=== PATIENT | female | born 1935 | race African-American/Black ===

== ENCOUNTER 2018-02-18 13:52 | Outpatient (CLI) | payer MEDICARE | END 2018-02-18 13:53 | disposition home or self-care (01) | LOC: BICULT 13:52 | PROVIDERS: ATTEND Otolaryngology Plastic Surgery within the Head & Neck | DX: E04.1 Nontoxic single thyroid nodule (principal); E04.2 Nontoxic multinodular goiter; Z90.89 Acquired absence of other organs | CPT/HCPCS: 76536 ==

== ENCOUNTER 2019-02-07 00:16 | Outpatient (CLI) | payer MEDICARE, MEDICAID ==
[2019-02-07 13:59] LABS: #Eosinphils 0.2 thou/uL (0.0-0.7); #Lymphocytes 1.6 thou/uL (1.20-3.40); #Monocytes 0.5 thou/uL (0.11-0.59); #Neutrophils 1.6 thou/uL (1.40-6.50); %Basophils 0.8 % (0.0-1.0); %Eosinophils 6.1 % (0.0-10.0); %Lymphocytes 39.6 % (21.0-51.0); %Monocytes 11.7 % (0.0-10.0); %Neutrophils 41.8 % (42.0-75.0); Hemoglobin 12.6 g/dL (12.0-16.0); Mean Corpuscular Hemoglobin 31.1 pg (27.0-31.0); Mean Corpuscular Volume 97.2 fL (78.0-98.0); Mean Platelet Volume 8.8 fL (7.4-10.4); Platelet Count 186 thou/uL (130-400); RBC Distribution Width 12.5 % (11.5-14.5); Red Blood Cell (RBC) Count 4.07 mill/uL (4.20-5.40); White Blood Cell (WBC) Count 3.9 thou/uL (4.8-10.8)
[2019-02-07 14:27] LABS: Anion Gap 13 mmol/L (10-20); BUN (Urea Nitrogen) 16 mg/dL (9.8-20.1); Calc. Creatinine Clearance 0 mL/min (70-130); Calcium 9.6 mg/dL (7.8-10.44); Carbon Dioxide 28 mmol/L (23-31); Chloride 105 mmol/L (98-107); Estimated GFR-MDRD 74; Glucose 85 mg/dL (83-110); Potassium 3.8 mmol/L (3.5-5.1); Sodium 142 mmol/L (136-145)
== END 2019-02-07 00:17 | disposition home or self-care (01) ==
LOC: LABBT 00:16
PROVIDERS: ATTEND Orthopaedic Surgery
DX: Z01.818 Encounter for other preprocedural examination (principal); G56.02 Carpal tunnel syndrome, left upper limb
CPT/HCPCS: 80048; 85025; 93005; 93010

== ENCOUNTER 2019-02-28 06:49 | Day surgery (SDC) | payer MEDICARE, MEDICAID ==
[2019-02-25 10:53] VITALS: BMI 19.8
[2019-02-28] MEDS ORDERED: Clindamycin/D5W 900 mg/50 ml Premix Bag ONE (09:07)
[2019-02-28] MEDS ORDERED: Lidocaine 1% (PF) 30 ML VIAL ONE (09:40)
[2019-02-28] MEDS ORDERED: Bupivacaine PF 0.5% 30 ML VIAL ONE (09:41)
[2019-02-28] MEDS ORDERED: Lidocaine 1% PF 5 ML VIAL ONE (12:12)
[2019-02-28] MEDS ORDERED: PROPOFOL 200 MG/20 ML VIAL ONE (12:12)
--- NOTE | 2019-02-28 18:43 | OP ---
DATE OF PROCEDURE: 02/28/2019 ANESTHESIA: Local plus TIVA. PREOPERATIVE DIAGNOSIS: Left carpal tunnel syndrome. POSTOPERATIVE DIAGNOSIS: Left carpal tunnel syndrome. PROCEDURE PERFORMED: Left endoscopic carpal tunnel release. DESCRIPTION OF PROCEDURE: After satisfactory anesthesia was induced in a position, the patient was prepped and draped in routine manner. A field block with 1% lidocaine 10 mL was performed. The left arm was elevated, exsanguinated with an Esmarch bandage, and the tourniquet was inflated to 250 mmHg. A 2 cm transverse incision was made in the proximal wrist flexion crease and carried down through the subcutaneous tissues. Bleeding points were controlled with cautery. Using sharp and blunt dissection, a distally based flap at the deep forearm fascia was developed and was retracted distally. Palmaris longus tendon was retracted radially. Proximal edge of the deep forearm fascia was split under direct visualization with small scissors to make sure there was no proximal impingement median nerve. The carpal tunnel based synovium was elevated, but it was introduced beneath the transverse carpal ligament. The synovium cleaned from the under surface. Carpal tunnel dilators were inserted. A Qnarye endoscopic carpal tunnel system was introduced beneath the transverse carpal ligament in-line with the ring finger. The distal edge of the ligament was easily identified and then divided in a distal to proximal direction by pulling the trigger of the assembly, engaging the knife, and withdrawing the scope proximally. This was done in several stages to make sure there was complete division of the transverse carpal ligament, which was documented with the video printer. After withdrawing the scope, a carpal tunnel dilator could be inserted into the carpal tunnel and there was markedly improved passage and subcutaneous position of the instrument. The scope was reintroduced in the carpal tunnel. There was wide separation of the 2 leaves of the transverse carpal ligament. The tourniquet was released after 6 minutes. Of note, there was no excessive bleeding when the scope was withdrawn. The wound was thoroughly irrigated and then closed with running subcuticular 3-0 nylon. Sterile dressing was applied. The patient immobilized in a Velcro wrist splint. She was awakened and taken out from the operating room in stable condition. There were no apparent intraoperative complications. The estimated blood loss was negligible. The patient will be discharged home in satisfactory condition, started on ice and elevation, and given written wound care instructions. She was given a prescription for tramadol for pain, 20 tabs with one refill. She will be rechecked in my office in 10 to 14 days or sooner if any problems prior to that time. Job ID: [id number]
--- NOTE | 2019-03-01 10:03 | HP ---
HISTORY OF PRESENT ILLNESS: The patient is an 83-year-old female with a 1-year history of pain and tingling in both hands, left symptomatic more than right. She has had pain and tingling in median nerve distribution, which has persisted despite rest, restriction of activities, and splinting. Her symptoms are worse at night. PAST MEDICAL HISTORY: The patient has history of hypertension, thyroid disease, and high cholesterol. CURRENT MEDICATIONS: Include; 1. Donepezil. 2. Lipitor. 3. Megace. 4. Zyrtec. 5. Multivitamins. 6. Amlodipine. 7. Low-dose aspirin. 8. Clonidine. 9. Hydrochlorothiazide. 10. Irbesartan. 11. Levothyroxine. 12. Omeprazole. ALLERGIES: SHE IS ALLERGIC TO PENICILLIN. FAMILY HISTORY: Otherwise, unremarkable. SOCIAL HISTORY: Otherwise, unremarkable. REVIEW OF SYSTEMS: Otherwise, unremarkable. PHYSICAL EXAMINATION: GENERAL: Reveals a healthy elderly female. HEENT: Unremarkable. NECK: Supple. CHEST: Clear. HEART: Regular rate and rhythm. ABDOMEN: Soft and nontender. PELVIC, RECTAL, AND BREASTS: Deferred. EXTREMITIES: Pertinent findings related to her hands and wrists. There is slight thenar atrophy bilaterally. There is full range of motion. There is some questionable weakness of thumb abduction bilaterally. There is a positive Tinel's sign and positive Phalen's test bilaterally, left slightly greater than right. There is subjective numbness in median nerve distribution bilaterally. There is good capillary refill. DIAGNOSTIC STUDIES: Electrodiagnostic studies reveal bilateral carpal tunnel syndrome, left greater than right. PLAN: Endoscopic possible open left carpal tunnel release. She will eventually require staged right carpal tunnel release. The nature of the surgery, length of recovery, and potential complications such as infection, loss of motion, incomplete relief, nerve injury, recurrence, need for additional treatment, and repeat surgery have been discussed in detail with the patient and her son. Job ID: [id number]
== END 2019-02-28 11:54 | disposition home or self-care (01) ==
LOC: EEVIPCON 06:49 → SDC 06:49
PROVIDERS: ATTEND Orthopaedic Surgery
PROC: 01N54ZZ Release Median Nerve, Percutaneous Endoscopic Approach (ICD-10-PCS; principal; 2019-02-28)
DX: G56.03 Carpal tunnel syndrome, bilateral upper limbs (principal); K21.9 Gastro-esophageal reflux disease without esophagitis; M19.90 Unspecified osteoarthritis, unspecified site; F41.9 Anxiety disorder, unspecified; I10 Essential (primary) hypertension; E03.9 Hypothyroidism, unspecified; E78.5 Hyperlipidemia, unspecified; E78.00 Pure hypercholesterolemia, unspecified; Z79.82 Long term (current) use of aspirin; Z79.899 Other long term (current) drug therapy; Z88.0 Allergy status to penicillin
CPT/HCPCS: J2001; J3490; S0020

== ENCOUNTER 2019-06-01 08:33 | Outpatient (CLI) | payer MEDICARE, MEDICAID ==
[2019-06-01 09:31] LABS: #Eosinphils 0.2 thou/uL (0.0-0.7); #Lymphocytes 1.1 thou/uL (1.20-3.40); #Monocytes 0.4 thou/uL (0.11-0.59); #Neutrophils 1.4 thou/uL (1.40-6.50); %Basophils 1.5 % (0.0-1.0); %Eosinophils 5.1 % (0.0-10.0); %Lymphocytes 35.7 % (21.0-51.0); %Monocytes 11.3 % (0.0-10.0); %Neutrophils 46.4 % (42.0-75.0); Hemoglobin 12.2 g/dL (12.0-16.0); Mean Corpuscular HGB CONC 32.4 g/dL (32.0-36.0); Mean Corpuscular Hemoglobin 31.3 pg (27.0-31.0); Mean Corpuscular Volume 96.8 fL (78.0-98.0); Mean Platelet Volume 8.5 fL (7.4-10.4); Platelet Count 181 thou/uL (130-400); RBC Distribution Width 12.4 % (11.5-14.5); Red Blood Cell (RBC) Count 3.88 mill/uL (4.20-5.40); White Blood Cell (WBC) Count 3.1 thou/uL (4.8-10.8)
[2019-06-01 09:50] LABS: Anion Gap 12 mmol/L (10-20); BUN (Urea Nitrogen) 16 mg/dL (9.8-20.1); Calc. Creatinine Clearance 0 mL/min (70-130); Calcium 9.6 mg/dL (7.8-10.44); Carbon Dioxide 27 mmol/L (23-31); Chloride 108 mmol/L (98-107); Estimated GFR-MDRD 79; Glucose 91 mg/dL (83-110); Sodium 143 mmol/L (136-145)
== END 2019-06-01 08:34 | disposition home or self-care (01) ==
LOC: LABBT 08:33
PROVIDERS: ATTEND Orthopaedic Surgery
DX: Z01.818 Encounter for other preprocedural examination (principal); G56.01 Carpal tunnel syndrome, right upper limb
CPT/HCPCS: 80048; 85025; 93005; 93010

== ENCOUNTER 2019-06-15 05:36 | Day surgery (SDC) | payer MEDICARE, MEDICAID ==
[2019-05-31 14:34] VITALS: BMI 21.1
--- NOTE | 2019-06-14 09:33 | HP ---
HISTORY OF PRESENT ILLNESS: The patient is an 84-year-old female with a long history of pain and numbness in both hands without injury. She has had persistent symptoms despite rest, restriction of activities, splinting, and anti-inflammatory medications. She underwent a left carpal tunnel release in February of this year with gradual improvement. She continues to have symptoms on the right side and is admitted at this time for right carpal tunnel release. PAST MEDICAL HISTORY: The patient has history of high cholesterol, high blood pressure, and thyroid disease. CURRENT MEDICATIONS: Include, 1. Lipitor. 2. Megace. 3. Zyrtec. 4. Multivitamins. 5. 81 mg aspirin. 6. Buspirone. 7. Clonidine. 8. Hydrochlorothiazide. 9. Irbesartan. 10. Levothyroxine. 11. Omeprazole. 12. Tramadol. 13. Donepezil. 14. Seroquel. ALLERGIES: SHE IS ALLERGIC TO PENICILLIN. FAMILY HISTORY: Otherwise unremarkable. SOCIAL HISTORY: Otherwise unremarkable. REVIEW OF SYSTEMS: Otherwise unremarkable. PHYSICAL EXAMINATION: GENERAL: Reveals a healthy elderly female. HEENT: Unremarkable. NECK: Supple. CHEST: Clear. HEART: Regular rate and rhythm. ABDOMEN: Soft, nontender. PELVIC, RECTAL, BREASTS: Deferred. EXTREMITIES: Pertinent findings related to the right wrist. There is atrophy in the thenar eminence. There is no point tenderness. There is full range of motion. There is a negative Phalen's test. Positive Tinel's sign. There is decreased sensation in median nerve distribution. There is good capillary refill. DIAGNOSTIC STUDIES: Electrodiagnostic studies are positive for carpal tunnel syndrome. IMPRESSION: 1. Right carpal tunnel syndrome. 2. Status post left carpal tunnel release. PLAN: Endoscopic possible open right carpal tunnel release. The nature of the surgery, length of recovery, and potential complications such as infection, loss of motion, incomplete relief, nerve injury, recurrence, and need for additional treatment and repeat surgery have been discussed in detail with the patient and her son. Job ID: [id number]
[2019-06-15] MEDS ORDERED: Clindamycin/D5W 900 mg/50 ml Premix Bag ONE (06:10)
[2019-06-15] MEDS ORDERED: Fentanyl 100 MCG/2 ML VIAL ONE (06:36)
[2019-06-15] MEDS ORDERED: Lidocaine 1% (PF) 30 ML VIAL ONE (07:01)
[2019-06-15] MEDS ORDERED: HYDROcodone/Acetaminophen 5/325 mg Tablet ONE (09:04)
--- NOTE | 2019-06-15 09:12 | OP ---
DATE OF PROCEDURE: 06/15/2019 ANESTHESIA: General. PREOPERATIVE DIAGNOSIS: Right carpal tunnel syndrome. POSTOPERATIVE DIAGNOSIS: Right carpal tunnel syndrome. PROCEDURE PERFORMED: Right endoscopic carpal tunnel release. DESCRIPTION OF PROCEDURE: After satisfactory anesthesia was induced in the supine position, the patient was prepped and draped in the routine manner. A field block with 1% plain lidocaine was performed approximately 8 mL. The right arm was elevated, exsanguinated with an Esmarch bandage and the tourniquet inflated to 225 mmHg. A 2-cm transverse incision was made in the proximal wrist flexion crease carried down through the subcutaneous tissues. Bleeding points were controlled with Bovie cautery. Using sharp blunt dissection, a distally based flap at the deep forearm fascia was developed and retracted distally. Palmaris longus tendon was retracted radially. Proximal edge of the deep forearm fascia was split under direct visualization with small scissors to make sure there was no proximal impingement of the median nerve. Synovial elevator was introduced beneath the transverse carpal ligament and the synovium was cleaned from the under surface. Carpal tunnel dilators were inserted. The [place] endoscopic carpal tunnel system was introduced beneath the transverse carpal ligament in-line with the ring finger. The distal edge of the ligament was easily identified and then divided in a distal to proximal direction by pulling the trigger of the assembly and engaging the knife and withdrawing the scope proximally. This was done at several stages to make sure there was complete division of the transverse carpal ligament, which was documented with video printer. After withdrawing the scope, the carpal tunnel dilator could be inserted in the carpal tunnel and there was markedly improved passage and subcutaneous position of the instrument. The scope was reinserted into the carpal tunnel. There was wide separation of the 2 leaves of the transverse carpal ligament. The tourniquet was released after 6 minutes. There was no excessive bleeding and the scope was withdrawn. The wound was thoroughly irrigated and closed with a running subcuticular 3-0 nylon. Sterile dressing was applied and the patient immobilized in a Velcro wrist splint. She was awakened and taken to recovery room in stable condition. There were no apparent intraoperative complications. The estimated blood loss was negligible. The patient will be discharged home in satisfactory condition, instructed on ice, elevation, given written wound care instructions. She has tramadol at home for pain. She will be rechecked in my office in 10 to 14 days or sooner if there are any problems prior to that time. Job ID: [id number]
[2019-06-15] MEDS ORDERED: Ketorolac Tromethamine 30 MG/ML VIAL ONE (16:22)
[2019-06-15] MEDS ORDERED: Dexamethasone 20 MG/5 ML VIAL ONE (16:22)
[2019-06-15] MEDS ORDERED: Lidocaine 1% PF 5 ML VIAL ONE (16:22)
[2019-06-15] MEDS ORDERED: Ondansetron PF 4 MG/2 ML Vial ONE (16:22)
[2019-06-15] MEDS ORDERED: PROPOFOL 200 MG/20 ML VIAL ONE (16:22)
== END 2019-06-15 10:00 | disposition home or self-care (01) ==
LOC: SDC 05:36
PROVIDERS: ATTEND Orthopaedic Surgery
PROC: 01N54ZZ Release Median Nerve, Percutaneous Endoscopic Approach (ICD-10-PCS; principal; 2019-06-15)
DX: G56.01 Carpal tunnel syndrome, right upper limb (principal); E78.00 Pure hypercholesterolemia, unspecified; Z79.82 Long term (current) use of aspirin; Z79.899 Other long term (current) drug therapy; Z88.0 Allergy status to penicillin
CPT/HCPCS: J2001; J3010; J3490

== ENCOUNTER 2019-12-15 12:21 | Outpatient (CLI) | payer MEDICARE ==
--- NOTE | 2019-12-15 13:14 | ULT ---
THYROID ULTRASOUND INDICATION: Thyroid nodule TECHNIQUE: Grayscale and color Doppler images were obtained of the thyroid gland. COMPARISON: None FINDINGS: Right thyroid lobe: The right thyroid lobe measures 4.9 x 2.4 x 2.6 cm. There is a 3.6 x 2.5 x 3.1 cm well-circumscribed isoechoic solid nodule that is wider than it is tall without associated suspicious calcifications Thyroid isthmus: The thyroid isthmus measures 0.25 cm. Left thyroid lobe: There is very little visualized soft tissue resembling thyroid tissue in the left thyroid bed. Recommend correlation for prior left thyroidectomy. Minimal soft tissue measures approximately 1.8 x 0.9 x 0.6 cm. IMPRESSION: 1. TIRADS 3 lesion involving the mid to inferior pole of the right thyroid gland. This lesion is abov e 2.5 cm in size. Recommend ultrasound-guided FNA for further characterization. 2. Poorly visualized thyroid tissue in the region of the left thyroid lobe. Recommend correlation wit h surgical history of a left thyroidectomy. 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
== END 2019-12-15 12:22 | disposition home or self-care (01) ==
LOC: BICULT 12:21
PROVIDERS: ATTEND Otolaryngology Plastic Surgery within the Head & Neck
DX: E04.1 Nontoxic single thyroid nodule (principal); E07.89 Other specified disorders of thyroid; E89.0 Postprocedural hypothyroidism
CPT/HCPCS: 76536

== ENCOUNTER 2020-02-21 07:45 | Outpatient (CLI) | payer MEDICARE, MEDICAID ==
--- NOTE | 2020-02-21 08:54 | ULT ---
ABDOMINAL ULTRASOUND: Date: 02/21/2020 COMPARISON: None. HISTORY: Abdominal pain. TECHNIQUE: Multiplanar Church scale sonographic imaging of the abdomen obtained. FINDINGS: The imaged pancreas appears grossly unremarkable. The distal body and tail are obscured by bowel gas. Imaged aorta and IVC appear grossly unremarkable. There are multiple hepatic cysts noted, the largest noted within the inferior aspect of the right lob e measuring up to approximately 5.0 cm. No gallbladder wall thickening or pericholecystic fluid. No gallstones are noted. The common bile sunny t measures 3.0 mm, within normal limits. Right kidney measures 9.2 cm in craniocaudal dimension and demonstrates no stone, hydronephrosis, or mass lesion. Spleen measures up to 8.1 cm, within normal limits. Left kidney measures 9.7 cm in craniocaudal dimension and demonstrates no evidence for stone, hydrone phrosis, or mass lesion. There is a small cyst in the upper pole of the left kidney measuring approxi mately 1.4 cm. IMPRESSION: Incidental findings as detailed above. No acute findings are seen. POS: AB
--- NOTE | 2020-02-21 08:59 | ULT ---
PELVIC ULTRASOUND: DATE: 02/21/2020. COMPARISON: None. HISTORY: Pelvic pain. TECHNIQUE: Multiplanar, myers scale, sonographic imaging of the pelvis obtained. FINDINGS: The patient is status post hysterectomy. Neither ovary is visualized. No free fluid is seen in the pelvis. Bowel gas and associated shadowing limits detailed assessment. IMPRESSION: Grossly unremarkable pelvic ultrasound. If symptoms persist, CT may be beneficial. POS: AB
== END 2020-02-21 07:46 | disposition home or self-care (01) ==
LOC: BICULT 07:45
PROVIDERS: ATTEND Family Medicine
DX: R10.2 Pelvic and perineal pain (principal)
CPT/HCPCS: 76856; 93975

== ENCOUNTER 2020-05-04 10:34 | Outpatient (CLI) | payer MEDICARE, MEDICAID ==
--- NOTE | 2020-05-04 16:04 | CT ---
CT LUMBAR SPINE WITHOUT CONTRAST: 05/04/20 INDICATIONS: Low back pain. Right side sciatica. FINDINGS: The vertebral bodies maintain height and alignment. Moderate degenerative changes are noted with ante rior and lateral osteophytes from the vertebral bodies. The disc spaces are maintained. No evidence o f spondylolisthesis or spondylolysis. Findings at each level are described. At L1-2, mild posterior disc bulge and posterior spurring mildly flatten the thecal sac. Facet hypert rophy. Mild central canal stenosis. At L2-3, broad based disc bulge is present. Moderate facet and ligamentous hypertrophy. Mild to moder ate central canal stenosis. No significant foraminal stenosis. At L3-4, broad based disc bulge. Moderate facet and ligamentous hypertrophy. Moderate central canal s tenosis. No foraminal stenosis. At L4-5, diffuse disc bulge. Prominent facet and ligamentous hypertrophy. Moderate to severe central canal stenosis at this level. Mild foraminal narrowing due to broad based bulge and facet hypertrophy . Foraminal narrowing is more prominent on the right. At L5-S1, broad based disc bulge. Congenitally smaller thecal sac without significant central canal s tenosis. Mild bilateral foraminal stenosis. IMPRESSION: There are degenerative changes of the lumbar spine as described above. Mild to moderate central canal stenosis with stenosis being most severe at the L4-5 level as described. POS: VANE
== END 2020-05-04 10:35 | disposition home or self-care (01) ==
LOC: BICCT 10:34
PROVIDERS: ATTEND Internal Medicine
DX: M54.41 Lumbago with sciatica, right side (principal); M47.816 Spondylosis without myelopathy or radiculopathy, lumbar region; M48.061 Spinal stenosis, lumbar region without neurogenic claudication
CPT/HCPCS: 72131

== ENCOUNTER 2020-09-13 08:56 | Outpatient (CLI) | payer MEDICARE, MEDICAID ==
--- NOTE | 2020-09-13 09:23 | ULT ---
ULTRASOUND ABDOMINAL AORTA: HISTORY: Screening for abdominal aortic aneurysm FINDINGS: The abdominal aortic measurements are as follows: Proximal: 2 x 1.9 x 1.9cm Mid: 1.6 x 1.7 x 1.8cm Distal: 1.7 x 1.3 x 1.7cm IMPRESSION: No evidence of abdominal aortic aneurysm.
== END 2020-09-13 08:57 | disposition home or self-care (01) ==
LOC: BICULT 08:56
PROVIDERS: ATTEND Internal Medicine
DX: Z13.6 Encounter for screening for cardiovascular disorders (principal)
CPT/HCPCS: 76775

== ENCOUNTER 2021-02-11 12:41 | Outpatient (CLI) | payer MEDICARE, MEDICAID | END 2021-02-11 12:42 | disposition home or self-care (01) | LOC: BICULT 12:41 | PROVIDERS: ATTEND Otolaryngology Plastic Surgery within the Head & Neck | DX: E04.1 Nontoxic single thyroid nodule (principal) | CPT/HCPCS: 76536 ==

== ENCOUNTER 2021-11-05 15:10 | Outpatient (CLI) | payer MEDICARE, MEDICAID | END 2021-11-05 15:11 | disposition home or self-care (01) | LOC: BICULT 15:10 | PROVIDERS: ATTEND Otolaryngology Plastic Surgery within the Head & Neck | DX: E04.1 Nontoxic single thyroid nodule (principal) | CPT/HCPCS: 76536 ==

== ENCOUNTER 2022-10-23 07:39 | Inpatient (IN) | payer MEDICARE, MEDICAID ==
[2022-10-23 08:34] LABS: #Eosinphils 0.1 thou/uL (0.0-0.7); #Monocytes 0.6 thou/uL (0.11-0.59); #Neutrophils 4.8 thou/uL (1.40-6.50); %Basophils 0.2 % (0.0-1.0); %Eosinophils 0.8 % (0.0-10.0); %Lymphocytes 15.4 % (21.0-51.0); %Monocytes 8.7 % (0.0-10.0); %Neutrophils 74.9 % (42.0-75.0); Hemoglobin 11.8 g/dL (12.0-16.0); Mean Corpuscular HGB CONC 32.1 g/dL (32.0-36.0); Mean Corpuscular Hemoglobin 29.7 pg (27.0-31.0); Mean Corpuscular Volume 92.4 fl (78.0-98.0); Mean Platelet Volume 8.3 fL (7.4-10.4); Platelet Count 232 10x3/uL (130-400); RBC Distribution Width 13.8 % (11.5-14.5); Red Blood Cell (RBC) Count 3.98 mill/uL (4.20-5.40); White Blood Cell (WBC) Count 6.4 10x3/uL (4.8-10.8)
[2022-10-23 08:57] LABS: ALT (SGPT) 13 U/L (8-55); AST (SGOT) 20 U/L (5-34); Albumin 4.2 g/dL (3.4-4.8); Alkaline Phosphatase 78 U/L (40-110); Anion Gap 18 mmol/L (10-20); BUN (Urea Nitrogen) 10 mg/dL (9.8-20.1); Bilirubin, Total 0.5 mg/dL (0.2-1.2); Calc. Creatinine Clearance 0 mL/min (70-130); Calcium 9.4 mg/dL (7.8-10.44); Carbon Dioxide 25 mmol/L (23-31); Chloride 103 mmol/L (98-107); Estimated GFR 55; Globulin 3.1 g/dL (2.4-3.5); Glucose 133 mg/dL (83-110); Potassium 4.3 mmol/L (3.5-5.1); Protein, Total 7.3 g/dL (5.8-8.1); Sodium 142 mmol/L (136-145)
[2022-10-23 09:25] LABS: Bacteria/HPF None Seen HPF (None Seen); Bilirubin Negative (Negative); Blood, Urine Negative (Negative); Clarity Clear (Clear); Glucose, Urine (Dipstick) Normal (Negative); Ketone, Urine Negative (Negative); Leukocyte Negative Leu/uL (Negative); Nitrite Negative (Negative); Protein, Urine (Dipstick) 30 mg/dL (Neg-Trace); RBC/HPF 0-3 HPF (0-3); Specific Gravity, Urine 1.022 (1.002-1.036); Squamous Epithelial None Seen HPF (0-3); WBC/HPF 0-3 HPF (0-3); pH, Urine 7.5 (5.0-9.0)
[2022-10-23 10:02] LABS: SARS-CoV-2 NAA Rapid Test DETECTED (NotDetected)
[2022-10-23] MEDS ORDERED: Ondansetron PF 4 MG/2 ML Vial IVP PRN (13:48)
[2022-10-23] MEDS ORDERED: Ondansetron ODT 4 MG TAB PO PRN (13:48)
[2022-10-23] MEDS ORDERED: Acetaminophen 325 MG TAB PO PRN (13:48)
[2022-10-23] MEDS ORDERED: Acetaminophen 650 MG Suppository PR PRN (13:48)
[2022-10-23 16:01] VITALS: BMI 19.8
[2022-10-23] MEDS ORDERED: hydrALAZINE 20 MG/ML VIAL SLOW IVP PRN (16:01)
[2022-10-23] MEDS: Sodium Chloride 0.9% 1,000 ML IV SCH (16:48)
[2022-10-23] MEDS: busPIRone HCl 10 MG TAB PO SCH (20:21)
[2022-10-23] MEDS ORDERED: Donepezil HCl 10 MG TAB PO SCH (21:00)
[2022-10-23] MEDS ORDERED: Diclofenac 1% 100 GM GEL TP PRN (21:22)
[2022-10-23] MEDS ORDERED: traZODone HCl 50 MG TAB PO SCH (21:25)
[2022-10-24] MEDS: Sodium Chloride 0.9% 1,000 ML IV SCH ×2 (04:50→18:29)
[2022-10-24 06:42] LABS: #Eosinphils 0.1 thou/uL (0.0-0.7); #Monocytes 0.5 thou/uL (0.11-0.59); %Basophils 0.3 % (0.0-1.0); %Eosinophils 1.3 % (0.0-10.0); %Lymphocytes 21.6 % (21.0-51.0); %Monocytes 10.8 % (0.0-10.0); Hemoglobin 11.9 g/dL (12.0-16.0); Mean Corpuscular HGB CONC 31.3 g/dL (32.0-36.0); Mean Corpuscular Hemoglobin 29.6 pg (27.0-31.0); Mean Corpuscular Volume 94.6 fl (78.0-98.0); Mean Platelet Volume 8.8 fL (7.4-10.4); Platelet Count 203 10x3/uL (130-400); RBC Distribution Width 13.8 % (11.5-14.5); Red Blood Cell (RBC) Count 4.02 mill/uL (4.20-5.40); White Blood Cell (WBC) Count 5.3 10x3/uL (4.8-10.8)
[2022-10-24 06:44] LABS: Anion Gap 13 mmol/L (10-20); BUN (Urea Nitrogen) 11 mg/dL (9.8-20.1); Calc. Creatinine Clearance 52 mL/min (70-130); Carbon Dioxide 25 mmol/L (23-31); Cardiac Risk 2.8 (Less than 4.5); Chloride 105 mmol/L (98-107); Cholesterol 147 mg/dl (< 200 Desired); Estimated GFR 71; Glucose 88 mg/dL (83-110); HDL Cholesterol 53 mg/dL (>60 Neg Risk); LDL Cholesterol, Calculated 81 mg/dL; Potassium 4.2 mmol/L (3.5-5.1); Sodium 139 mmol/L (136-145); Triglycerides 65 mg/dL (Less than 150)
[2022-10-24] MEDS ORDERED: Aspirin 81 mg Enteric Coated Tablet PO SCH (09:00)
[2022-10-24] MEDS ORDERED: Atorvastatin Calcium 10 MG TAB PO SCH ×2 (09:00→21:00)
[2022-10-24] MEDS ORDERED: Non-Formulary Item 1 EACH (Memantine Hcl/Donepezil Hcl [Namzaric 28 Mg-10 Mg Capsule] 1 E PO SCH (09:00)
[2022-10-24] MEDS ORDERED: Levothyroxine Sodium 25 MCG TAB PO SCH (09:00)
[2022-10-24] MEDS: busPIRone HCl 10 MG TAB PO SCH (09:32)
[2022-10-24] MEDS ORDERED: Lansoprazole 15 MG/5 ML (BATCHED)UDCUP PO SCH (09:45)
[2022-10-24] MEDS ORDERED: Aspirin Chewable 81 MG TAB PO SCH (09:45)
[2022-10-24] MEDS: Gabapentin 100 MG CAP PO SCH ×2 (09:51→16:09)
[2022-10-24] MEDS: Diclofenac 1% 100 GM GEL TP PRN ×2 (11:09→13:15)
[2022-10-24] MEDS ORDERED: Diclofenac 1% 100 GM GEL TP PRN (13:16)
[2022-10-24 14:45] VITALS: TEMP 98.1
[2022-10-24 15:56] VITALS: BP 140/60
[2022-10-25] MEDS ORDERED: Aspirin Chewable 81 MG TAB PO SCH (09:00)
[2022-10-25] MEDS ORDERED: Lansoprazole 15 MG/5 ML (BATCHED)UDCUP PO SCH (09:00)
== END 2022-10-24 19:00 | disposition home health service (06) | DRG 177 ==
LOC: ERS 07:39 → ERHOLD 10:47 → NEURO 14:52 → OBSVTOIN 10-24 10:17
PROVIDERS: ADMIT Internal Medicine; ATTEND Internal Medicine
PROC: 8E0ZXY6 Isolation (ICD-10-PCS; principal; 2022-10-24)
DX: U07.1 COVID-19 (principal); G93.41 Metabolic encephalopathy; G30.9 Alzheimer's disease, unspecified; F02.80 Dementia in other diseases classified elsewhere, unspecified severity, without behavioral disturbance, psychotic disturbance, mood disturbance, and anxiety; E78.5 Hyperlipidemia, unspecified; E03.9 Hypothyroidism, unspecified; N18.30 Chronic kidney disease, stage 3 unspecified; I12.9 Hypertensive chronic kidney disease with stage 1 through stage 4 chronic kidney disease, or unspecified chronic kidney disease; K21.9 Gastro-esophageal reflux disease without esophagitis; Z88.0 Allergy status to penicillin; Z79.899 Other long term (current) drug therapy; Z79.82 Long term (current) use of aspirin; Z79.890 Hormone replacement therapy; Z98.890 Other specified postprocedural states
CPT/HCPCS: 36415; 51701; 70450; 70551; 71045; 80048; 80053; 80061; 81003; 81015; 83605; 84443; 84484; 85025; 87040; 93005; 93306; 95712; 95819; 95957; G0378; J7050

== ENCOUNTER 2024-05-31 15:08 | Outpatient (CLI) | payer MEDICARE, MEDICAID | END 2024-05-31 15:09 | disposition home or self-care (01) | LOC: ULT 15:08 → BICULT 15:09 | PROVIDERS: ATTEND Otolaryngology Plastic Surgery within the Head & Neck | DX: E04.1 Nontoxic single thyroid nodule (principal) | CPT/HCPCS: 76536 ==